=== PATIENT | male | born 1955 | race Caucasian/White ===

== ENCOUNTER 2024-02-08 10:50 | Emergency (ER) | payer SELFPAY ==
[2024-02-08] MEDS ORDERED: Boostrix 0.5 ML (Tdap) VIAL (>/=7 yrs of age) ONE (11:25)
[2024-02-08] MEDS ORDERED: Bacitracin 1 PK ONE (11:36)
== END 2024-02-08 12:00 | disposition home or self-care (01) ==
LOC: NAV ERS 10:50
DX: S01.21XA Laceration without foreign body of nose, initial encounter (principal); Z23 Encounter for immunization; W01.0XXA Fall on same level from slipping, tripping and stumbling without subsequent striking against object, initial encounter
CPT/HCPCS: 12011; 90471; 90715